=== PATIENT | female | born 1975 | race Caucasian/White ===

== ENCOUNTER 2016-08-07 10:04 | Inpatient (IN) | payer BC ==
[2016-08-07] MEDS ORDERED: MORPHINE SULFATE 4 MG/ML SYRINGE IVP STA (10:36)
[2016-08-07] MEDS ORDERED: ONDANSETRON 4 MG/2 ML VIAL IVP STA (10:36)
[2016-08-07 11:06] LABS: Basophils % (A) 0 %; CH 31.3; CHCM 33.6; Eosinophils # (A) 0.2 k/uL (0-0.7); Eosinophils % (A) 1 %; HCT 38.4 % (34.0-46.0); HDW 2.28; HGB 12.6 gm/dL (11.4-16.0); Luc # (Auto) 0.19; Luc % (Auto) 2; Lymphocytes # (A) 2.1 k/uL (1.0-4.8); Lymphocytes % (A) 16 %; MCH 30.7 pg (25.0-35.0); MCHC 32.9 g/dL (31.0-37.0); MCV 93.5 fL (80.0-100.0); Mean Platelet Volume 6.3; Monocytes # (A) 0.6 k/uL (0-1.0); Monocytes % (A) 5 %; Neutrophils % (A) 76 %; RDW 13.6 % (11.5-15.5); WBC 13.1 k/uL (3.8-10.6)
[2016-08-07 11:18] LABS: Anion Gap 9 mmol/L; Blood Urea Nitrogen 13 mg/dL (7-17); Calcium 8.7 mg/dL (8.4-10.2); Carbon Dioxide 25 mmol/L (22-30); Chloride 105 mmol/L (98-107); Glucose 113 mg/dL (74-99); Non-African American GFR(MDRD) >60 (>60 ml/min/1.73 sqM); Potassium 3.7 mmol/L (3.5-5.1); Sodium 139 mmol/L (137-145)
--- NOTE | 2016-08-07 13:01 | ED ---
Skin/Abscess/FB HPI - General Source: patient, RN notes reviewed Mode of arrival: ambulatory Limitations: no limitations <Nelson Sykes - Last Filed: 08/07/16 13:23> <Yury Vogel - Last Filed: 08/07/16 13:32> - General Chief complaint: Skin/Abscess/Foreign Body Stated complaint: abcess under arm Time Seen by Provider: 08/07/16 10:19 - History of Present Illness Initial comments: 40-year-old female presents emergency Department chief complaint of abscess to her left side of her chest, left axilla region. Patient states started a few days ago. She states is getting very large and very painful. Patient states she felt that she said fever, chills at home. Patient states she's had multiple of these ever since starting on methotrexate and Humira. She states that she was started on this for rheumatoid arthritis. Patient states that she' s had been on antibiotics in the past at least lanced open but states this is much different and worse. Patient denies any shortness of breath, headache or dizziness. (Nelson Sykes) - Related Data Home Medications Medication Instructions Recorded Confirmed Levothyroxine Sodium [Synthroid] 25 mcg PO DAILY 05/23/14 08/07/16 clonazePAM [KlonoPIN] 0.5 mg PO BID 05/23/14 08/07/16 Cyclobenzaprine [Flexeril] 10 mg PO DAILY PRN 02/09/16 08/07/16 Sertraline [Zoloft] 100 mg PO DAILY 02/09/16 08/07/16 Adalimumab [Humira] 10 mg SQ Q14D 08/07/16 08/07/16 Ergocalciferol [Vitamin D2] 50,000 unit PO ROONEY 08/07/16 08/07/16 Folic Acid 1 mg PO DAILY 08/07/16 08/07/16 Gabapentin [Neurontin] 300 mg PO BID 08/07/16 08/07/16 HYDROcodone/APAP 7.5-325MG [[place] 1 tab PO BID 08/07/16 08/07/16 7.5-325] Methotrexate Sodium [Methotrexate] 25 mg PO ROONEY 08/07/16 08/07/16 Naproxen [Naprosyn] 500 mg PO BID PRN 08/07/16 08/07/16 predniSONE See Taper PO DAILY 08/07/16 08/07/16 Allergies Allergy/AdvReac Type Severity Reaction Status Date / Time No Known Allergies Allergy Verified 08/07/16 10:45 Review of Systems ROS Other: All systems not noted in ROS Statement are negative. <Nelson Sykes - Last Filed: 08/07/16 13:23> ROS Other: All systems not noted in ROS Statement are negative. <Yury Vogel - Last Filed: 08/07/16 13:32> ROS Statement: Those systems with pertinent positive or pertinent negative responses have been documented in the HPI. Past Medical History Past Medical History: Thyroid Disorder Additional Past Medical History / Comment(s): anxiety History of Any Multi-Drug Resistant Organisms: None Reported Past Surgical History: Back Surgery, Section, Orthopedic Surgery, Tubal Ligation, Uterine Ablation Additional Past Surgical History / Comment(s): [facility], carpal tunnel. C-SEC X 2 Past Anesthesia/Blood Transfusion Reactions: No Reported Reaction Past Psychological History: Anxiety, Depression Smoking Status: Former smoker Past Alcohol Use History: None Reported Additional Past Alcohol Use History / Comment(s): QUIT SMOKING NOV 2015- SMOKED 1/2 PP WEEK FOR 1 YEAR Past Drug Use History: None Reported - Past Family History Mother Family Medical History: No Reported History <Nelson Sykes - Last Filed: 08/07/16 13:23> General Exam Limitations: no limitations General appearance: alert, in no apparent distress Respiratory exam: Present: normal lung sounds bilaterally. Absent: respiratory distress, wheezes, rales, rhonchi, stridor Cardiovascular Exam: Present: regular rate, normal rhythm, normal heart sounds. Absent: systolic murmur, diastolic murmur, rubs, gallop, clicks Skin exam: Present: warm, other (Left chest wall, axilla region there is a 1 cm papule region with extensive erythema extending towards her back and breast region there is moderately tender with palpation moderate warmth) <Nelson Sykes - Last Filed: 08/07/16 13:23> Procedures - Incision & Drainage Indication: Abscess Site: chest Size (cm): 1 Anesthetic Used: lidocaine 1%, without epi Amount (mLs): 3 I&D Cleaning Method: Betadine Needle Aspiration Performed?: Yes I&D Drainage Obtained: Pus, Blood Culture Obtained?: Yes Patient Tolerated Procedure: well, no complications <Nelson Sykes - Last Filed: 08/07/16 13:23> Medical Decision Making - Lab Data Result diagrams: 08/07/16 10:50 08/07/16 10:50 <Nelson Sykes - Last Filed: 08/07/16 13:23> - Lab Data Result diagrams: 08/07/16 10:50 08/07/16 10:50 <Yury Vogel - Last Filed: 08/07/16 13:32> - Medical Decision Making Patient reevaluated by myself, Dr. Vogel. Patient has approximately 12 x 14 area of cellulitis left chest wall with some underlying fluctuance. Ultrasound concerned for abscess. Secondary to patient being on Humira and methotrexate she will be admitted for IV antibiotics. Patient does meet sepsis criteria. Case was discussed with Dr. cope, who will admit for Dr. Bonds. Consult for Dr. kennedy with infectious disease (Yury Vogel) - Lab Data Lab Results 08/07/16 08/07/16 Range/Units 10:50 10:50 WBC 13.1 H (3.8-10.6) k/uL RBC 4.10 (3.80-5.40) m/uL Hgb 12.6 (11.4-16.0) gm/dL Hct 38.4 (34.0-46.0) % MCV 93.5 (80.0-100.0) fL MCH 30.7 (25.0-35.0) pg MCHC 32.9 (31.0-37.0) g/dL RDW 13.6 (11.5-15.5) % Plt Count 320 (150-450) k/uL Neutrophils % 76 % Lymphocytes % 16 % Monocytes % 5 % Eosinophils % 1 % Basophils % 0 % Neutrophils # 10.0 H (1.3-7.7) k/uL Lymphocytes # 2.1 (1.0-4.8) k/uL Monocytes # 0.6 (0-1.0) k/uL Eosinophils # 0.2 (0-0.7) k/uL Basophils # 0.0 (0-0.2) k/uL Sodium 139 (137-145) mmol/L Potassium 3.7 (3.5-5.1) mmol/L Chloride 105 (98-107) mmol/L Carbon Dioxide 25 (22-30) mmol/L Anion Gap 9 mmol/L BUN 13 (7-17) mg/dL Creatinine 0.70 (0.52-1.04) mg/dL Est GFR (MDRD) Af Amer >60 (>60 ml/min/1.73 sqM) Est GFR (MDRD) Non-Af >60 (>60 ml/min/1.73 sqM) Glucose 113 H (74-99) mg/dL Calcium 8.7 (8.4-10.2) mg/dL Disposition <Nelson Sykes - Last Filed: 08/07/16 13:23> <Yury Vogel - Last Filed: 08/07/16 13:32> Clinical Impression: Chest wall abscess, Cellulitis of chest wall Disposition: ADMITTED IP TO THIS HOSP Referrals: Judson Bonds DO [Primary Care Provider] - 1-2 days
[2016-08-07] MEDS ORDERED: AMPICILLIN-SULBACTAM 3 GM in SODIUM CHLORIDE 0.9% 100 ML IVPB STA (13:13)
[2016-08-07] MEDS ORDERED: IV VANCOMYCIN PER PHARMACY 1 EACH MISC MISCELLANE PRN (13:13)
[2016-08-07] MEDS ORDERED: NALOXONE 0.4 MG/ML 1 ML VIAL IV PRN (13:25)
[2016-08-07] MEDS ORDERED: ACETAMINOPHEN TAB 325 MG TAB PO PRN (13:25)
[2016-08-07] MEDS ORDERED: ONDANSETRON 4 MG/2 ML VIAL IVP PRN (13:25)
[2016-08-07] MEDS ORDERED: CYCLOBENZAPRINE 10 MG TAB PO PRN (13:27)
--- NOTE | 2016-08-07 13:28 | US ---
EXAMINATION TYPE: US mass soft tissue chest/back DATE OF EXAM: 08/07/2016 11:17 AM COMPARISON: NONE CLINICAL HISTORY: left chest wall abscess. left lateral palpable abscess. Red and hard at touch. Pa inful. Patient states having 13 of these before in axilla, but this is different location. Black do t seen in center of area. Scanning performed at the site of patient's symptomatology, possible abnormality. Grayscale, color Do ppler imaging performed. Area of palpable abscess scanned. Nonvascular complex lesion seen = 1.1 x 2.7 x 1.0 cm. Superficial canal seen. Inflammation seen. Area shows lobular borders, mixed echogenicity. IMPRESSION: Findings suggest phlegmon or abscess.
[2016-08-07] MEDS ORDERED: VANCOMYCIN 1,750 MG in SODIUM CHLORIDE 0.9% 250 ML IVPB ONE (14:00)
[2016-08-07] MEDS ORDERED: VANCOMYCIN 1,750 MG in SODIUM CHLORIDE 0.9% 500 ML IVPB ONE (14:00)
[2016-08-07] MEDS: MORPHINE SULFATE 4 MG/ML SYRINGE IV PRN ×3 (15:20→23:14)
[2016-08-07] MEDS: IBUPROFEN 400 MG TAB PO PRN ×2 (15:21→23:15)
[2016-08-07] MEDS: HYDROcodone/APAP 7.5-325MG 1 EACH TAB PO SCH (20:18)
[2016-08-07] MEDS: GABAPENTIN 300 MG CAP PO SCH (20:18)
[2016-08-07] MEDS: clonazePAM 0.5 MG TAB PO SCH (20:18)
--- NOTE | 2016-08-07 20:55 | P.PN ---
Progress Note - Text Patient seen and evaluated. She has history of previous multiple abscesses along the axilla including face following her recent diagnosis of rheumatoid arthritis. She reported 4 day history of increasing pain and warmth as well as fevers of the left chest wall. Needle aspiration was performed per ER. Ultrasound was obtained. Infectious disease is following. Given size of abscess and cellulitis of 25 x 15 cm, she may have deep subcutaneous abscess which would need drainage. Will schedule for surgical intervention. Benefits and risks were described to the patient. She agreed to proceed with surgery.
[2016-08-07] MEDS: AMPICILLIN-SULBACTAM 3 GM in SODIUM CHLORIDE 0.9% 100 ML IVPB SCH (23:07)
[2016-08-08] MEDS: VANCOMYCIN 1,750 MG in SODIUM CHLORIDE 0.9% 250 ML IVPB SCH ×2 (00:01→15:35)
[2016-08-08] MEDS: LEVOTHYROXINE 25 MCG TAB PO SCH (05:48)
[2016-08-08] MEDS: HYDROcodone/APAP 7.5-325MG 1 EACH TAB PO SCH ×2 (07:36→21:12)
[2016-08-08] MEDS: clonazePAM 0.5 MG TAB PO SCH ×2 (07:37→21:12)
[2016-08-08] MEDS: AMPICILLIN-SULBACTAM 3 GM in SODIUM CHLORIDE 0.9% 100 ML IVPB SCH (07:37)
[2016-08-08] MEDS: GABAPENTIN 300 MG CAP PO SCH ×2 (07:37→21:12)
[2016-08-08] MEDS: SERTRALINE 100 MG TAB PO SCH (07:37)
--- NOTE | 2016-08-08 07:49 | CONS ---
DATE OF CONSULTATION: DATE OF SERVICE: 08/07/2016 REASON FOR CONSULTATION: Left chest wall abscess. HISTORY OF PRESENT ILLNESS: The patient is a 40-year-old female with recent diagnosis of rheumatoid arthritis and history of recurrent skin and soft tissue infection, unfortunately none of them was drained or cultured to determine the infecting organism. The patient is presenting to the ER with left-sided chest wall and axillary area swelling and redness that had been going on for the last 4 to 5 days. The patient did not recall any history of trauma to the area. The area became swollen and red and painful. Pain described to be throbbing 6 to 7 out of 10, and no radiation. The kourtney becomes more swollen and red as well. Patient complaining of some chills, but no high-grade fever. Subsequently, the patient has been evaluated by the ER physician. The patient did have a soft tissue ultrasound done, which did show a 1.1 x 2.7 x1 cm possible abscess. The patient has been admitted to the floor started on vancomycin in addition to the Unasyn. I was asked to see the patient for further recommendation regarding antibiotic therapy. REVIEW OF SYSTEMS: CONSTITUTIONAL: Positive for weakness and a fever. EYES: No complaint. ENT: No complaint. RESPIRATORY: No complaint. CARDIOVASCULAR: No complaint. GENITOURINARY: No complaint. GASTROINTESTINAL: No complaint. MUSCULOSKELETAL: No complaint. INTEGUMENTARY: As per HPI. PSYCHOLOGIC: No complaint. ENDOCRINE: No complaint. NEUROLOGICAL: No complaint. PAST MEDICAL HISTORY: Significant for a recent diagnosis of rheumatoid arthritis, hypothyroidism, soft tissue infection, anxiety and depression. PAST SURGICAL HISTORY: Back surgery, tubal ligation, uterine ablation, bilateral carpal tunnel, x2. SOCIAL HISTORY: Remote history of smoking. No drinking or drug use. FAMILY HISTORY: No pertinent findings were noticed. ALLERGIES: No known drug allergies. MEDICATIONS: Currently include the patient is on Tylenol, [place], Unasyn, Klonopin, Flexeril, folic acid, Neurontin, Motrin, morphine sulfate, Narcan, Zofran, vancomycin pharmacy to dose. On examination, blood pressure is 127/79 with a pulse of 107, temperature of 101.6. She is 99% on room air. General description is an elderly female lying in bed in no distress. HEENT EXAMINATION: No pallor or scleral icterus. Oral mucous membranes dry. NECK: Trachea central. There is no thyromegaly. LUNGS: Unlabored breathing. Clear to auscultation anteriorly. HEART: S1, S2. Regular rate and rhythm. ABDOMEN: Soft, no tenderness. EXTREMITIES: No edema of feet. EXAMINATION OF LEFT CHEST WALL: There is an area of swelling and redness, some fluctuation, no drainage, NEUROLOGIC: The patient is awake, alert, oriented x2. Mood affect normal. LABS: Ultrasound suggestive of an abscess formation. Hemoglobin is 12.6, white count 13.1. BUN of 13, creatinine 0.70. DIAGNOSTIC IMPRESSION: Patient with sepsis in a patient who did have fever of 101.6 with tachycardia, elevated white count meeting criteria for systemic inflammatory response syndrome. Source is left chest wall cellulitis and abscess likely from Gram-positive skin valente with a question of possible Staph aureus in view of recurrent skin and soft tissue infection. PLAN: 1. Await surgical drainage of this area, which will be sent for culture. 2. Vancomycin, pharmacy to dose, with a target trough of 15 along with Unasyn. 3. Will follow up on the clinical condition and cultures to further adjust the medication if needed. Thank you for this consultation. Will follow this patient along with you. SUSHIL
[2016-08-08] MEDS: ENOXAPARIN 40 MG/0.4 ML SYRINGE SQ SCH (11:08)
[2016-08-08] MEDS ORDERED: IV FLUID CONTINUATION 1,000 ML IV ONE (12:16)
--- NOTE | 2016-08-08 12:29 | HP ---
DATE OF ADMISSION: 08/07/2016 PRESENTING COMPLAINT: Abscess in the left chest wall. HISTORY OF PRESENTING COMPLAINT: This is a very pleasant 40-year-old patient of Dr. Bonds. Chronic stable medical conditions include rheumatoid arthritis, hypothyroid, anxiety. The patient does follow with Dr. Vail for rheumatoid arthritis, was started on Humira and has been on methotrexate. This patient has been having recurrent infections. They become golf size balls, described as hidradenitis. Patient stopped going for ( ) antibiotics as she felt they were not really helping. She just takes a warm cloth until it bursts. The patient now presents with another bout of abscess below the left axilla, started as a small pin and continued to grow. The patient developed a fever, nausea, decreased appetite, rundown, a sepsis-like picture and admitted for the same. Patient is put on IV vancomycin and Unasyn in the ER and Dr. Smart was consulted. REVIEW OF SYSTEMS: CONSTITUTIONAL: Febrile, weak, tired. HEENT: None. RESPIRATORY: None. CARDIOVASCULAR: None. GASTROINTESTINAL: None GENITOURINARY: None. MUSCULOSKELETAL: Rheumatoid pain in the hands, elbows, knees. DERMATOLOGICAL: As above. LYMPHATICS: None. PSYCHIATRY: Anxiety. NEUROLOGICAL: None. PAST MEDICAL HISTORY: Rheumatoid arthritis, hypothyroid, recurrent hidradenitis. PAST SURGICAL HISTORY: Back surgery, , orthopedic surgery, uterine ablation, cervical effusion. Past psych history of anxiety. SOCIAL HISTORY: Lives with 2 children. Has not been working since November of last year. Does not smoke. Alcohol occasionally. FAMILY HISTORY: Hypertension, osteoarthritis, Abrams's palsy. HOME MEDICATIONS: 1. Humira 10 mg subcu every 14 days. 2. Prednisone taper. 3. Folic acid 1 mg daily. 4. Methotrexate 25 mg on Sundays. 5. Klonopin 0.5 mg p.o. b.i.d. 6. Zoloft 100 mg p.o. daily. 7. Naproxen 500 mg p.o. b.i.d. p.r.n. 8. Synthroid 25 mcg p.o. daily. 9. [place] 7.5 b.i.d. 10. Neurontin 300 mg p.o. b.i.d. 11. Vitamin D2, 50,000 units p.o. on Sundays. 12. Flexeril 10 mg p.o. daily p.r.n. ALLERGIES: None. ON EXAMINATION: VITAL SIGNS: T-max to 101.6, pulse up to 107, respirations 16, blood pressure 127/79, pulse ox 99% on room air. GENERAL APPEARANCE: Well built, BMI of 38.3, lying in bed, not in distress. EYES: Pupils equal. Conjunctivae normal. HENT: Oral cavity normal. NECK: Short, thick. JVD unable to assess. Mass not palpable. RESPIRATORY: Effort normal. LUNGS: Fair air entry. CARDIOVASCULAR: First and second sounds normal. No edema. ABDOMEN: Soft, nontender. Liver and spleen not palpable. LYMPHATIC: No lymph nodes palpable in neck or axillae. PSYCHIATRY: Alert and oriented x3. Mood and affect normal. NEUROLOGICAL: Pupils equal. Cranial nerves grossly intact. MUSCULOSKELETAL: Mildly swollen joints in the hands. DERMATOLOGICAL: There is an abscess below the left axillae in the mid axillary line about 7 cm x 4 cm, very tender, has got a pinpoint area, a little bit fluctuant with a large surrounding area of cellulitis. INVESTIGATIONS: White count 13.1, hemoglobin 12.6. Potassium 3.7. ASSESSMENT: 1. Acute left chest wall abscess subcutaneous with severe surrounding cellulitis in a patient who is immunosuppressed with methotrexate and Humira, recurrent, presenting as sepsis on presentation. 2. Bilateral multiple joints, symmetrical rheumatoid arthritis in multiple joints, on immunosuppressive therapy. 3. Obesity; body mass index of 38.3. 4. Anxiety, not otherwise specified. 5. Depression, not otherwise specified 6. Hypothyroidism. PLAN: Patient started on IV Unasyn and vancomycin. Dr. Smart was consulted for I&D. Initial culture is already growing staph aureus. We will consult Dr. Vail. The patient's Humira and methotrexate have to be held off at least until the infection clears up. Care was discussed with the patient. Patient should also see a dietitian for weight loss measures.
[2016-08-08] MEDS ORDERED: PROMETHAZINE INJ 6.25 MG in SODIUM CHLORIDE 0.9% 50 ML IVPB STA (12:46)
--- NOTE | 2016-08-08 12:48 | P.HPADDEND ---
H&P Addendum H&P Addendum Date: 08/08/16 Patient has severe pain of the left upper chest wall secondary to an abscess. We'll proceed with drainage and washout. Benefits and risks are discussed to her and the patient's family.
[2016-08-08] MEDS ORDERED: HYDROCORTISONE SUCCINATE 100 MG/2 ML VIAL IV ONE (12:49)
[2016-08-08] MEDS ORDERED: PROMETHAZINE INJ 25 MG/ML 1 ML VIAL IVPB ONE (13:04)
[2016-08-08] MEDS ORDERED: SUCCINYLCHOLINE CHLORIDE 100 MG/5 ML SYR IV ONE (13:06)
[2016-08-08] MEDS ORDERED: fentaNYL (PF) 50 MCG/ML 2 ML AMP ONE (13:06)
[2016-08-08] MEDS ORDERED: MIDAZOLAM 2 MG/2 ML VIAL ONE (13:06)
[2016-08-08] MEDS ORDERED: PROPOFOL 10 MG/ML 20 ML VIAL IV ONE (13:06)
[2016-08-08] MEDS ORDERED: LIDOCAINE 1% INJ 10MG/ML (20 ML MDV) ONE (13:06)
[2016-08-08] MEDS ORDERED: BUPIVACAIN-EPI 0.25%-1:200,000 30 ML VIAL SQ ONE (13:25)
--- NOTE | 2016-08-08 13:53 | P.PCN ---
Date of Procedure: 08/08/16 Preoperative Diagnosis: Cellulitis left chest wall with abscess Postoperative Diagnosis: Same, 15 x 10 cm Procedure(s) Performed: Incision and drainage of left chest wall 15 x 10 cm, washout of wound 3 L normal saline, packing [employer] Anesthesia: GETA, local Surgeon: Annetta Smart Estimated Blood Loss (ml): 30 Pathology: other (Aerobic and anaerobic culture) Condition: stable Disposition: floor Operative Findings: 5 x 3 cm pocket left chest wall incised and drained and packed
[2016-08-08] MEDS ORDERED: LACTATED RINGERS 1,000 ML IV ONE (14:46)
[2016-08-08] MEDS: FOLIC ACID 1 MG TAB PO SCH (15:22)
--- NOTE | 2016-08-08 21:50 | PN ---
DATE OF SERVICE: 08/08/2016 REASON FOR FOLLOWUP: Left chest wall abscess. INTERVAL HISTORY: The patient did spike a fever last night; however, the patient has been afebrile since then. The patient is scheduled for an I&D of this area later this afternoon. The patient's pain is slightly improved. The patient denies having any chest pain or shortness of breath or cough. No abdominal pain or any diarrhea. On examination, blood pressure is 107/56 with pulse of 66, temperature 97.3. She is 98% on 2 L nasal cannula. General description is a middle-aged female up in the bed in no distress. RESPIRATORY SYSTEM: Unlabored breathing. Clear to auscultation anteriorly. HEART: S1, S2. Regular rate and rhythm. LEFT CHEST WALL: Overall area swelling and redness have slightly improved. No drainage. LABS: No new labs have been obtained today. Cultures from yesterday presumptive MRSA. DIAGNOSTIC IMPRESSION AND PLAN: Patient with a left chest wall abscess, likely methicillin-resistant Staphylococcus aureus. Awaiting surgical debridement. The patient will continue on vancomycin, Pharmacy to dose. Further adjustment of antibiotic based on the culture report as well as the clinical response. Continue supportive care.
[2016-08-08] MEDS ORDERED: VANCOMYCIN TROUGH DUE 1 EACH MISC MISCELLANE ONE (23:00)
[2016-08-09] MEDS: VANCOMYCIN 1,750 MG in SODIUM CHLORIDE 0.9% 250 ML IVPB SCH ×4 (01:12→22:54)
[2016-08-09] MEDS: LEVOTHYROXINE 25 MCG TAB PO SCH (05:41)
[2016-08-09] MEDS: clonazePAM 0.5 MG TAB PO SCH ×2 (08:30→20:50)
[2016-08-09] MEDS: ENOXAPARIN 40 MG/0.4 ML SYRINGE SQ SCH (08:31)
[2016-08-09] MEDS: SERTRALINE 100 MG TAB PO SCH (08:31)
[2016-08-09] MEDS: HYDROcodone/APAP 7.5-325MG 1 EACH TAB PO SCH ×2 (08:31→20:50)
[2016-08-09] MEDS: FOLIC ACID 1 MG TAB PO SCH (08:31)
[2016-08-09] MEDS: GABAPENTIN 300 MG CAP PO SCH ×2 (08:31→20:50)
[2016-08-09 08:34] LABS: Basophils % (A) 0 %; CH 31.1; CHCM 33.1; Eosinophils # (A) 0.2 k/uL (0-0.7); Eosinophils % (A) 2 %; HCT 34.7 % (34.0-46.0); HDW 2.38; HGB 11.5 gm/dL (11.4-16.0); Luc # (Auto) 0.22; Luc % (Auto) 2; Lymphocytes # (A) 2.2 k/uL (1.0-4.8); Lymphocytes % (A) 24 %; MCH 31.3 pg (25.0-35.0); MCHC 33.1 g/dL (31.0-37.0); MCV 94.3 fL (80.0-100.0); Mean Platelet Volume 6.6; Monocytes # (A) 0.4 k/uL (0-1.0); Monocytes % (A) 4 %; Neutrophils # (A) 6.4 k/uL (1.3-7.7); Neutrophils % (A) 68 %; RBC 3.68 m/uL (3.80-5.40); RDW 13.4 % (11.5-15.5); WBC 9.4 k/uL (3.8-10.6); WBC (Perox) 9.93
[2016-08-09 09:04] LABS: Anion Gap 8 mmol/L; Blood Urea Nitrogen 6 mg/dL (7-17); Carbon Dioxide 29 mmol/L (22-30); Chloride 103 mmol/L (98-107); Glucose 99 mg/dL (74-99); Non-African American GFR(MDRD) >60 (>60 ml/min/1.73 sqM); Potassium 3.9 mmol/L (3.5-5.1); Sodium 140 mmol/L (137-145)
--- NOTE | 2016-08-09 15:05 | P.PN ---
Subjective Did note that the wound culture from the left axillary chest wall preliminary presumptive MRSA infectious disease participating in the plan of care. Bloo cultures showing no growth 48 hours. Patient has remained afebrile for the last 24 hours with a white count down to 9.4 on admission was 13.1 40-year-old female being seen on rounds. Family at bedside. Early on IV vancomycin. This is a follow-up visit on a female who presented with left chest wall pain found to have an abscess underwent an incision and drainage of this area on the This is a follow-up visit on a 40-year-old female who presented with left anterior chest wall pain found to have cellulitis with an abscess. Patient underwent incision and drainage of the left chest wall measuring 15 x 10 cm with a washout of 3 L of normal saline with packing of an Aquacel ag rope Objective - Vital Signs Vital signs: Vital Signs Temp 97.6 F 08/09/16 07:00 Pulse 87 08/09/16 07:00 Resp 16 08/09/16 07:00 BP 108/59 08/09/16 07:00 Pulse Ox 96 08/09/16 07:00 Intake & Output 08/08/16 08/09/16 08/09/16 18:59 06:59 18:59 Intake Total 800 800 360 Output Total 30 Balance 770 800 360 Intake: IV 800 800 .9 800 Oral 0 360 Output: Estimated Blood Loss 30 Other: Voiding Method Toilet Toilet # Voids 1 1 - Exam GENERAL APPEARANCE: Very pleasant 40-year-old female patient is alert, oriented , in no acute distress. Sitting up in bed VITAL SIGNS: Reviewed HEENT: Head is normocephalic and atraumatic. Pupils are equal and reactive. The nares are patent. Oropharynx is clear without lesions. NECK: Supple without lymphadenopathy. Traches midline. Chest dressing left axillary area dry positive tenderness HEART: S1, S2. Regular rate and rhythm. Denying chest pain LUNGS: No crackles or wheezes are heard. Essentially clear adequate air movement ABDOMEN: Soft, nontender, nondistended with good bowel sounds. No peritoneal signs. No palpable organomegaly or masses. EXTREMITIES: Normal skin color and turgor. No cyanosis, rash, ulceration, clubbing or edema. Radial pedal pulses are 2/4 bilaterally. NEUROLOGICAL: No focal deficits. Strength and sensation are grossly intact. - Labs CBC & Chem 7: 08/09/16 07:49 08/09/16 07:49 Labs: Abnormal Lab Results - Last 24 Hours (Table) 08/09/16 08/09/16 Range/Units 07:49 07:49 RBC 3.68 L (3.80-5.40) m/uL BUN 6 L (7-17) mg/dL Calcium 8.0 L (8.4-10.2) mg/dL Microbiology - Last 24 Hours (Table) 08/08/16 13:36 Gram Stain - Preliminary Chest Wound Culture - Preliminary Presumptive MRSA 08/08/16 13:36 Anaerobic Culture - Preliminary Chest Assessment and Plan Plan: Impression Present on admission severe left chest wall pain left axillary suspect due to an abscess Present on admission febrile tachycardic sepsis likely due to left axillary abscess History of rheumatoid arthritis on methotrexate and humira History recurrent infections is likely hidradenitis Hypertension essential hypothyroid on supplements Plan Continue IV vancomycin per infectious diseases recommendations Dressing change per surgical service Pain control Follow-up on pending wound cultures DVT and GI problem Further recommendations pending will follow surgical course closely The above dictated assessment and findings were discussed with Dr. Tiago Hamm covering for Dr. Smart Impression and the plan of care have been dictated as directed. Mayi Mederos nurse practitioner acting as a scribe for Dr. Claire covering for Dr. Smart
--- NOTE | 2016-08-09 18:52 | P.CONS ---
History of Present Illness - Reason for Consult Consult date: 08/09/16 Rheumatology consult: Reoccurring infection in pt. with RA - Chief Complaint LEFT chest wall pain - History of Present Illness Pt. is a pleasant 40 y/o female with a past medical history significant for rheumatoid arthritis, hypothyroidism, and anxiety who presented to the ER on Sunday (08/07) for left anterior chest wall pain. Pt. states that her symptoms initially began approximately 5 days ago on Sunday (08/04) when she noticed a hard, cystic structure near her left braline. Pt. also admits to having a fever on Sunday night. Pt. does have a history of lesions consistent with hidradenitis suppurativa and she states that she usually gets "ping-pong ball" sized nodules under her armpits and that after a day or two of using heating pads, the nodules are able to drain and eventually subside. Pt.'s initial lesions began on her ears this past February, and after being started on MTX for her RA, pt. states that she started getting lesions under her armpits. Pt. states that she knew that this episode was different since in addition to a fever, pt. also experienced nausea and headaches last weekend. Pt. also added that the structure felt hard and it was not draining like it normally has in the past, and pt. also mentions that she has never had an episode of lesions outside of her axillary region. Pt. states that she wanted to go to the ER on Sunday, however she postponed this since it was Easter and her family was over. Pt. was seen in the ER on Sunday morning and she mentions that at that time the structure seemed to have grown in length and the area was red, warm, and tender. Pt. was admitted to the hospital and yesterday she underwent incision and drainage of the left chest wall. Pt.'s wound culture did reveal presumptive MRSA and infectious disease is following pt.'s case. Blood cultures have revealed no growth x 48 hours. Pt. has been afebrile for the past 24 hours and her WBC count has returned to normal. Pt. is currently on IV vancomycin and she is waiting for her first dressing change. Pt. was sitting up in bed and eating dinner at the time of today's consult. She admits to still feeling a bit tired from the surgery yesterday and she also feels some burning in the area of the I&D. Pt. is also complaining of persistent hand pain and swelling. She was last seen in our office on 07/14 and at that time her MTX was increased from 5 pills once a week to 10 pills once a week with the hopes that this may increase the chance of her insurance covering Humira, since Humira is approved for RA and hidradenitis suppurativa. Pt. was also at that time having increased hand pain and swelling so she was started on a prednisone 30 mg, 2 week taper course. She is currently taking 25 mg prednisone daily. Pt. was given a Humira injection at her 07/14 visit and she was also provided with a couple of samples at that time. Pt. had her second Humira injection on 07/26 and she is due for her next injection today. Pt. did not take her MTX this past Sunday (08/06). Review of Systems All systems: negative Constitutional: Denies chills, Denies fever Eyes: denies blurred vision, denies pain Ears, nose, mouth and throat: Denies headache, Denies sore throat Cardiovascular: Denies chest pain, Denies shortness of breath Respiratory: Denies cough Gastrointestinal: Denies abdominal pain, Denies diarrhea, Denies nausea, Denies vomiting Genitourinary: Denies dysuria, Denies hematuria Musculoskeletal: Denies myalgias Musculoskeletal: bilateral: hand pain, hand stiffness, hand swelling Integumentary: Reports wounds (LEFT chest wall), Denies pruritus, Denies rash Neurological: Reports tingling (LEFT chest wall), Denies numbness, Denies weakness Psychiatric: Denies depression Endocrine: Reports fatigue, Denies weight change Past Medical History Past Medical History: Rheumatoid Arthritis (RA), Thyroid Disorder Additional Past Medical History / Comment(s): hypothyroid, abscesses since starting meds for RA. History of Any Multi-Drug Resistant Organisms: None Reported Past Surgical History: Back Surgery, Section, Orthopedic Surgery, Tubal Ligation, Uterine Ablation Additional Past Surgical History / Comment(s): BILAT CTR, C-SEC X 2, cervical fusions. Past Anesthesia/Blood Transfusion Reactions: No Reported Reaction Past Psychological History: Anxiety Additional Psychological History / Comment(s): Pt lives with her two children, ages 8 and 12. She is independent. Smoking Status: Former smoker Past Alcohol Use History: Occasional Additional Past Alcohol Use History / Comment(s): QUIT SMOKING NOV 2015- SMOKED 1/2 PP WEEK FOR 1 YEAR Past Drug Use History: None Reported - Past Family History Mother Family Medical History: Hypertension, Osteoarthritis (OA) Additional Family Medical History / Comment(s): Ever Hui Father Family Medical History: Rheumatoid Arthritis (RA) Additional Family Medical History / Comment(s): Severe RA Medications and Allergies Home Medications Medication Instructions Recorded Confirmed Type Levothyroxine Sodium [Synthroid] 25 mcg PO DAILY 05/23/14 08/07/16 History clonazePAM [KlonoPIN] 0.5 mg PO BID 05/23/14 08/07/16 History Cyclobenzaprine [Flexeril] 10 mg PO DAILY PRN 02/09/16 08/07/16 History Sertraline [Zoloft] 100 mg PO DAILY 02/09/16 08/07/16 History Adalimumab [Humira] 10 mg SQ Q14D 08/07/16 08/07/16 History Ergocalciferol [Vitamin D2] 50,000 unit PO ROONEY 08/07/16 08/07/16 History Folic Acid 1 mg PO DAILY 08/07/16 08/07/16 History Gabapentin [Neurontin] 300 mg PO BID 08/07/16 08/07/16 History HYDROcodone/APAP 7.5-325MG [Herald 1 tab PO BID 08/07/16 08/07/16 History 7.5-325] Methotrexate Sodium [Methotrexate] 25 mg PO ROONEY 08/07/16 08/07/16 History Naproxen [Naprosyn] 500 mg PO BID PRN 08/07/16 08/07/16 History predniSONE See Taper PO DAILY 08/07/16 08/07/16 History Allergies Allergy/AdvReac Type Severity Reaction Status Date / Time No Known Allergies Allergy Verified 08/07/16 10:45 Physical Exam Vitals: Vital Signs Temp Pulse Resp BP Pulse Ox 08/09/16 15:00 97.5 F L 85 16 109/69 97 08/09/16 07:00 97.6 F 87 16 108/59 96 08/08/16 21:45 97.6 F 102 H 16 124/80 99 Intake and Output 08/09/16 08/09/16 08/09/16 06:59 14:59 22:59 Intake Total 400 720 Balance 400 720 Intake: IV 400 .9 400 Oral 720 Other: Voiding Method Toilet # Voids 1 - Constitutional General appearance: no acute distress (sitting up and eating dinner ) - EENT Eyes: EOMI - Neck Neck: no lymphadenopathy - Respiratory Respiratory: bilateral: CTA - Cardiovascular Rhythm: regular - Gastrointestinal General gastrointestinal: no organomegaly, soft, no tenderness - Neurologic Neurologic: CNII-XII intact - Musculoskeletal Mild swelling in B/L 2nd and 3rd MCP joints, much improved since pt.'s last office visit on 07/14. - Psychiatric Psychiatric: A&O x's 3, appropriate affect, intact judgment & insight dressings present on left chest wall Results CBC & Chem 7: 08/09/16 07:49 08/09/16 07:49 Labs: Abnormal Lab Results - Last 24 Hours (Table) 08/09/16 08/09/16 Range/Units 07:49 07:49 RBC 3.68 L (3.80-5.40) m/uL BUN 6 L (7-17) mg/dL Calcium 8.0 L (8.4-10.2) mg/dL Microbiology - Last 24 Hours (Table) 08/08/16 13:36 Gram Stain - Preliminary Chest Wound Culture - Preliminary Presumptive MRSA 08/08/16 13:36 Anaerobic Culture - Preliminary Chest Assessment and Plan (1) Cellulitis of chest wall Status: Acute (2) Chest wall abscess Status: Acute (3) Rheumatoid arthritis Status: Chronic Plan: Dr. Vail did speak with the patient regarding further plan of care at this time. Pt. is to continue to stay off of the MTX and Humira for now since it seems as though patient's symptoms have worsened since increasing her MTX and further immunosuppression should be avoided at this time. She may continue her prednisone taper as long as this is okay with infectious disease. Pt. will be returning in the office for labwork sometime in August with a 2 week follow up appointment. At that time, Xeljanz may be discussed as an alternative treatment for pt.'s RA. She was advised to see dermatology after she is discharged for further evaluation and treatment of suspected hidradenitis suppurativa. The pt. was seen and examined by Dr. Vail who does agree with the above dictated assessment and findings. Time with Patient: Greater than 30
--- NOTE | 2016-08-09 20:16 | PN ---
DATE OF SERVICE: 08/09/2016 REASON FOR FOLLOWUP: Left chest wall MRSA abscess. INTERVAL HISTORY: The patient is afebrile. Pain is currently controlled. The patient is status post extensive debridement of the left chest wall area. Currently the wound has been packed and Per Surgeon's instructions not to be changed until tomorrow. No nausea or vomiting. No abdominal pain or any diarrhea. On examination, blood pressure 109/69 with a pulse of 85, temperature 97.5. She is 97% on room air. General description is a middle-age female lying in bed in no distress. RESPIRATORY SYSTEM: Unlabored breathing. Clear to auscultation anteriorly. HEART: S1, S2 with regular rate and rhythm. ABDOMEN: Soft. No tenderness. CHEST WALL: Left chest wall wound is currently dressed. LABS: Hemoglobin 11.5, white count 9.4. BUN of 6, creatinine 0.67. Vancomycin trough has been low. DIAGNOSTIC IMPRESSION AND PLAN: Patient with a methicillin-resistant Staphylococcus aureus left chest wall abscess, status post debridement. Vancomycin dose needs to be adjusted up by Pharmacy, decreased the dose the around the 15th. Re-evaluate the wound tomorrow to determine discharge antibiotics. Continue supportive care.
[2016-08-09] MEDS: predniSONE 10 MG TAB PO SCH (22:54)
[2016-08-10] MEDS: LEVOTHYROXINE 25 MCG TAB PO SCH (05:39)
[2016-08-10] MEDS: FOLIC ACID 1 MG TAB PO SCH (07:57)
[2016-08-10] MEDS: predniSONE 10 MG TAB PO SCH (07:57)
[2016-08-10] MEDS: SERTRALINE 100 MG TAB PO SCH (07:57)
[2016-08-10] MEDS: clonazePAM 0.5 MG TAB PO SCH ×2 (07:57→22:01)
[2016-08-10] MEDS: GABAPENTIN 300 MG CAP PO SCH ×2 (07:57→22:01)
[2016-08-10] MEDS: ENOXAPARIN 40 MG/0.4 ML SYRINGE SQ SCH (07:58)
[2016-08-10] MEDS: VANCOMYCIN 1,750 MG in SODIUM CHLORIDE 0.9% 250 ML IVPB SCH ×2 (07:58→15:26)
--- NOTE | 2016-08-10 08:07 | PN ---
DATE OF SERVICE: 08/09/2016 PRESENTING COMPLAINT: Left chest wall abscess. INTERVAL HISTORY: This is a patient immunosuppressed presented with left chest wall abscess, status post I&D, significant amount of pus was removed. Culture is growing MRSA. Patient is on vancomycin. Overall feeling better. Tolerating a diet. Patient's friends are present with her. Review of systems done for constitutional, cardiovascular, GI, pulmonary, dermatology; relevant findings as above. Current medications are reviewed and include vancomycin. On examination, temperature 97.5, pulse 85, respiration 16, blood pressure 109/69, pulse ox 97% on room air. GENERAL APPEARANCE: Sitting up, not in distress. EYES: Pupils equal. Conjunctivae normal. NECK: JVD not raised. Mass not palpable. RESPIRATORY: Effort normal. LUNGS: Fair entry. CARDIOVASCULAR: First and second sounds normal. No edema. ABDOMEN: Soft, nontender. Liver and spleen not palpable. CHEST WALL: Dressing over the wound site. INVESTIGATIONS: White count 9.4, hemoglobin 11.5. Micro is growing MRSA. ASSESSMENT: 1. Left chest wall abscess, status post I&D in immunosuppressed patient, has been on methotrexate and Humira, presenting as sepsis growing methicillin-resistant Staphylococcus aureus. 2. Bilateral symmetrical rheumatoid arthritis in multiple joints, on immunosuppression therapy. 3. Obesity; body mass index 38.3. 4. Anxiety, not otherwise specified. 5. Depression, not otherwise specified. 6. Hypothyroidism. PLAN: Continue with current medication and treatment plan. Await further input from ID. Care was discussed with the patient. Encouraged to ambulate.
[2016-08-10] MEDS: HYDROcodone/APAP 7.5-325MG 1 EACH TAB PO SCH ×2 (11:50→22:01)
[2016-08-10] MEDS ORDERED: VANCOMYCIN TROUGH DUE 1 EACH MISC MISCELLANE ONE (15:00)
--- NOTE | 2016-08-10 15:28 | P.PN ---
Subjective 40-year-old female patient being seen on rounds this morning. Dr. Tiago Hamm surgeon did remove the dressing from the left chest wall. There is decrease redness and tenderness compared to prior assessment. Patient is postop incision and drainage of the left chest wall with a washout 3 L of normal saline done on August 08. Patient is being followed by infectious disease Dr. Perera in being treated for left chest wall MRSA abscess Objective - Vital Signs Vital signs: Vital Signs Temp 97.9 F 08/10/16 07:00 Pulse 79 08/10/16 08:00 Resp 16 08/10/16 08:00 BP 139/87 08/10/16 07:00 Pulse Ox 96 08/10/16 07:00 Intake & Output 08/09/16 08/10/16 08/10/16 18:59 06:59 18:59 Intake Total 720 940 360 Balance 720 940 360 Weight 104.326 kg 104.326 kg Intake: IV 400 .9 400 Oral 720 540 360 Other: Voiding Method Toilet Toilet Toilet # Voids 1 1 - Exam GENERAL APPEARANCE: Very pleasant 40-year-old female patient is alert, oriented , in no acute distress. Sitting up in bed pain medication effective for pain control VITAL SIGNS: Reviewed HEENT: Head is normocephalic and atraumatic. Pupils are equal and reactive. The nares are patent. Oropharynx is clear without lesions. NECK: Supple without lymphadenopathy. Traches midline. Chest dressing left axillary removed scant amount of drainage noted. There is a significant improvement in the tenderness with decrease edema and decreased redness at the site HEART: S1, S2. Regular rate and rhythm. Denying chest pain LUNGS: No crackles or wheezes are heard. Essentially clear adequate air movement ABDOMEN: Soft, nontender, nondistended with good bowel sounds. No peritoneal signs. No palpable organomegaly or masses. EXTREMITIES: Normal skin color and turgor. No cyanosis, rash, ulceration, clubbing or edema. Radial pedal pulses are 2/4 bilaterally. NEUROLOGICAL: No focal deficits. Strength and sensation are grossly intact. - Labs CBC & Chem 7: 08/09/16 07:49 08/09/16 07:49 Labs: Microbiology - Last 24 Hours (Table) 08/08/16 13:36 Gram Stain - Final Chest Wound Culture - Final Methicillin resist S. aureus Assessment and Plan Plan: Impression Present on admission severe left chest wall pain left axillary suspect due to an abscess Present on admission febrile tachycardic sepsis likely due to left axillary abscess History of rheumatoid arthritis on methotrexate and humira History recurrent infections is likely hidradenitis Hypertension essential hypothyroid on supplements Plan Continue IV vancomycin per infectious diseases recommendations Wound care per infectious disease [facility] rope Pain control Follow-up on pending wound cultures DVT and GI prophylaxis Further recommendations pending will follow surgical course closely The above dictated assessment and findings were discussed with Dr. Tiago Hamm covering for Dr. Smart Impression and the plan of care have been dictated as directed. Mayi Mederos nurse practitioner acting as a scribe for Dr. Claire covering for Dr. Smart
--- NOTE | 2016-08-10 18:12 | PN ---
DATE OF SERVICE: 08/10/2016 REASON FOR FOLLOWUP: Left chest wall abscess. INTERVAL HISTORY: The patient is afebrile. She is currently breathing comfortably. Pain to the left chest wall is currently controlled. Denies having any abdominal pain. No nausea, vomiting or any diarrhea. On examination, blood pressure is 139/87 with a pulse of 81, temperature 97.9. She is 96% on room air. General description is a middle-aged female up in the bed in no distress. RESPIRATORY SYSTEM: Unlabored breathing. Clear to auscultation anteriorly. HEART: S1, S2. Regular rate and rhythm. ABDOMEN: Soft. No tenderness. LEFT CHEST WALL: Overall swelling and redness have slightly improved. Minimal drainage. LABS: Hemoglobin is 11.5, white count 9.4 with a BUN of 6, creatinine 0.67. Wound culture with MRSA. Blood culture has been negative. DIAGNOSTIC IMPRESSION AND PLAN: Patient with MRSA in left chest wall abscess, status post drainage. Currently on vancomycin. Plan to finish therapy with Bactrim DS one twice a day for about 2 weeks along with Aquacel Silver packing of the wound and followup in the office in about a week. Continue supportive care.
[2016-08-11] MEDS: LEVOTHYROXINE 25 MCG TAB PO SCH (05:46)
[2016-08-11 08:29] VITALS: BP 127/82; PULSE 84; RESP 18; TEMP 97.8
[2016-08-11] MEDS: VANCOMYCIN 1,750 MG in SODIUM CHLORIDE 0.9% 250 ML IVPB SCH ×3 (09:04)
[2016-08-11] MEDS: SERTRALINE 100 MG TAB PO SCH (09:07)
[2016-08-11] MEDS: predniSONE 10 MG TAB PO SCH (09:08)
[2016-08-11] MEDS: GABAPENTIN 300 MG CAP PO SCH (09:08)
[2016-08-11] MEDS: ENOXAPARIN 40 MG/0.4 ML SYRINGE SQ SCH (09:09)
--- NOTE | 2016-08-11 09:09 | PN ---
DATE OF SERVICE: 08/10/2016 PRESENTING COMPLAINT: Left chest wall abscess. INTERVAL HISTORY: This is a patient immunosuppressed, ( ) present with abscess left chest wall that was actually I&D. Cultures were growing MRSA, getting better. Up and about, tolerating a diet. Review of systems done for constitutional, cardiovascular, GI, pulmonary; relevant findings as above. Current medications include IV vancomycin. On examination, temperature 98.7, pulse 75, respiratory rate 20, blood pressure 130/81, pulse ox 95% on room air. GENERAL APPEARANCE: Sitting up, comfortable. EYES: Pupils equal. Conjunctivae normal. NECK: JVD not raised. Mass not palpable. RESPIRATORY: Effort normal. Lungs are clear. CARDIOVASCULAR: First and second sounds normal. No edema. ABDOMEN: Soft, nontender. Liver and spleen not palpable. Left chest wall ( ) decreased ( ). INVESTIGATIONS: No blood work from today. Vancomycin 30.2. ASSESSMENT: 1. Left chest wall abscess, status post incision and drainage in an immunosuppressed patient on methotrexate and Humira presenting with sepsis growing Methicillin-resistant Staph aureus on presentation. 2. Bilateral symmetrical rheumatoid arthritis of multiple joints on immunosuppressed therapy as an outpatient, now discontinued. 3. Obesity; body mass index of 38.3. 4. Anxiety, not otherwise specified. 5. Depression not otherwise specified. 6. Hypothyroidism. PLAN: Continue current medication and treatment plan. Hopefully, the patient can be discharged home on Bactrim in the next 24 hours.
[2016-08-11] MEDS: HYDROcodone/APAP 7.5-325MG 1 EACH TAB PO SCH (09:10)
[2016-08-11] MEDS: FOLIC ACID 1 MG TAB PO SCH (09:10)
[2016-08-11] MEDS: clonazePAM 0.5 MG TAB PO SCH (09:16)
--- NOTE | 2016-08-11 11:11 | P.PN ---
Subjective 40-year-old female being seen by the surgical attending this morning. The surgical dressing removed by Dr. Claire. There is a significant improvement in the redness less tender dressing was dry from the last chest site. Infectious disease participating in the plan of care. Patients being treated for left chest wall MRSA abscess. Patient is status post incision and drainage of the left chest wall which was done on August 08 with a 3 L washout. Objective - Vital Signs Vital signs: Vital Signs Temp 97.8 F 08/11/16 07:00 Pulse 84 08/11/16 07:00 Resp 18 08/11/16 07:00 BP 127/82 08/11/16 07:00 Pulse Ox 97 08/11/16 07:00 Intake & Output 08/10/16 08/11/16 08/11/16 18:59 06:59 18:59 Intake Total 1560 1130 Balance 1560 1130 Intake: Intake, IV Titration 650 550 Amount Lactated Ringers 1,000 ml 400 550 As IV .[facility] Rx#: [id number] Vancomycin 1,750 mg In 250 Sodium Chloride 0.9% 250 ml @ 125 mls/hr IVPB Q8HR [facility] Rx#:[id number] Oral 910 580 Other: Voiding Method Toilet Toilet # Voids 3 2 # Bowel Movements 0 0 - Exam GENERAL APPEARANCE: Very pleasant 40-year-old female patient is alert, oriented , in no acute distress. Has been up ambulating in the hallway VITAL SIGNS: Reviewed HEENT: Head is normocephalic and atraumatic. Pupils are equal and reactive. The nares are patent. Oropharynx is clear without lesions. NECK: Supple without lymphadenopathy. Traches midline. Chest dressing left axillary removed scant amount of drainage noted. There is a significant improvement in the tenderness with decrease edema and decreased redness at the site HEART: S1, S2. Regular rate and rhythm. Denying chest pain LUNGS: No crackles or wheezes are heard. Essentially clear adequate air movement ABDOMEN: Soft, nontender, nondistended with good bowel sounds. No peritoneal signs. No palpable organomegaly or masses. EXTREMITIES: Normal skin color and turgor. No cyanosis, rash, ulceration, clubbing or edema. Radial pedal pulses are 2/4 bilaterally. NEUROLOGICAL: No focal deficits. Strength and sensation are grossly intact. - Labs CBC & Chem 7: 04/19/17 07:49 08/09/16 07:49 Labs: Microbiology - Last 24 Hours (Table) 08/08/16 13:36 Anaerobic Culture - Preliminary Chest 08/08/16 13:36 Gram Stain - Final Chest Wound Culture - Final Methicillin resist S. aureus Assessment and Plan Plan: Impression Present on admission severe left chest wall pain left axillary suspect due to an abscess Present on admission febrile tachycardic sepsis likely due to left axillary abscess History of rheumatoid arthritis on methotrexate and humira History recurrent infections is likely hidradenitis Hypertension essential hypothyroid on supplements Plan Continue IV vancomycin per infectious diseases recommendations Wound care per infectious disease Aquacel AG rope Pain control Follow-up on pending wound cultures DVT and GI prophylaxis No further surgical recommendations at this time we'll sign off please re- consult with any further surgical issues that may arise The above dictated assessment and findings were discussed with Dr. Tiago Hamm covering for Dr. Smart Impression and the plan of care have been dictated as directed. Mayi Mederos nurse practitioner acting as a scribe for Dr. Claire covering for Dr. Smart Patient to follow-up in the outpatient setting with Dr. Smart
--- NOTE | 2016-08-11 14:06 | PN ---
DATE OF SERVICE: 08/11/2016 Reason for followup is left chest wall MRSA abscess. INTERVAL HISTORY: The patient is afebrile. She is currently feeling better. Pain is currently controlled. Denies significant chest pain, shortness of breath or cough. On examination, blood pressure 127/82 with a pulse of 84 temperature is 97.8. She is 97% on room air. General description is a middle-age female up in the room in no distress. RESPIRATORY SYSTEM: Unlabored breathing. Clear to auscultation anteriorly. HEART: S1, S2, regular rate and rhythm. ABDOMEN: Soft, no tenderness. LEFT CHEST WALL: Area of swelling, redness and induration has decreased. LABS: White count is 9.4. Creatinine is 0.67. Wound culture with MRSA. Blood culture has been negative. DIAGNOSTIC IMPRESSION AND PLAN: Patient with methicillin-resistant Staphylococcus aureus left chest wall abscess, status post drainage. Plan at this time to finish therapy with oral Bactrim DS along with Aquacel Silver packing of the wound. Follow up in the office in one week. Continue supportive care.
--- NOTE | 2016-08-14 15:53 | DS ---
DATE OF ADMISSION: 08/07/2016 DATE OF DISCHARGE: 08/11/2016 FINAL DIAGNOSES: 1. Left chest wall abscess and cellulitis in an immunosuppressed patient on methotrexate and ( ) causing sepsis on presentation, growing Methicillin-resistant Staph aureus. 2. Bilateral symmetrical rheumatoid arthritis of multiple joints, on immunosuppressed therapy as outpatient. 3. Obesity, body mass index of 38.3. 4. Anxiety not otherwise specified. 5. Depression not otherwise specified. 6. Hypothyroidism. HOSPITAL COURSE: This patient was on the above immunosuppressed therapy for rheumatoid arthritis that was now discontinued, presented with left chest wall abscess, I&D was carried out and growing MRSA. Doing much better at the time of discharge, cellulitis had also improved. CONSULTATIONS: Dr. Perera from infection disease, Dr. Leighann Bassett from general surgery/Dr. Smart from general surgery ( ) the procedure. Dr. Vail from rheumatology. On the day of discharge, care was discussed in detail with the patient and ( ) immunosuppressive therapy. The patient overall doing better. Discharge planning more than 35 minutes. DISCHARGE MEDICATIONS: 1. Synthroid 25 mcg p.o. daily. 2. Klonopin 0.5 mg p.o. b.i.d. 3. Flexeril 10 mg p.o. daily p.r.n. 4. Zoloft 100 mg p.o. daily. 5. Vitamin D2, 50,000 units p.o. Sunday. 6. Folic acid 1 mg p.o. daily. 7. Neurontin 300 mg p.o. daily. 8. [place] 7.5 p.o. b.i.d. 9. Naproxen 500 mg p.o. b.i.d. p.r.n. 10. Prednisone taper. 11. Bactrim DS 1 tablet p.o. q.12 28 tablets. 12. Tylenol 650 mg q.6 p.r.n. Wound care per Dr. Smart. Follow with Dr. Bonds on 08/18/2016. Dr. Smart on 08/22/2016, Dr. Perera on 08/17/2016. Dr. Vail as appointment.
--- NOTE | 2016-08-27 16:02 | P.OP ---
Date of Procedure: 08/08/16 Description of Procedure: SURGEON: SHIRA MONTES DE OCA MD FILM FLAT INSPECTOR: NONE. PREOPERATIVE DIAGNOSES: 1. Morbid obesity. 2. Body mass index 38.3. 3. Rheumatoid arthritis. 4. Cellulitis of the left chest wall with abscess. 5. Hypothyroidism. 6. Personal history of MRSA infection. POSTOPERATIVE DIAGNOSES: 1. Morbid obesity. 2. Body mass index 38.3. 3. Rheumatoid arthritis. 4. Cellulitis of the left chest wall with abscess. 5. Hypothyroidism. 6. Personal history of MRSA infection. 7. Cellulitis left chest wall with abscess along deep subcutaneous tissue, 15 x 10 cm, OPERATION: 1. Incision and drainage of left chest wall 15 x 10 cm 2. Washout of wound 3 L normal saline of left chest wall. 3. Packing Aquacell Ag Rope along left lateral chest wall. ANESTHESIA: GETA with local anesthetic. ESTIMATED BLOOD LOSS: 30 mL. SPECIMENS REMOVED: Aerobic, anaerobic culture. COMPLICATIONS: None. INDICATIONS: The patient is a 40-year-old female who comes in with previous history of multiple MRSA infections. She comes in with a moderate sized cellulitis along the left chest wall over 10-15 cm. Despite IV antibiotics, her symptoms have worsened. Now she presents for further surgical intervention. Benefits and risks were reviewed. Informed consent was obtained. DESCRIPTION: Patient was brought into the operating room, laid in supine position. After adequate IV sedation, the left chest wall was prepped and draped in standard sterile fashion using ChloraPrep. Prior to incision a timeout protocol was confirmed with surgical team regarding patient's name including procedures being performed. Preoperative antibiotic, which was scheduled vancomycin were already administered. DVT prophylaxis with bilateral SCDs were placed. DESCRIPTION: The skin was localized using local anesthetic. An incision of 4 cm was deepened into the deep subcutaneous tissue where immediately vikas purulent drainage was evacuated of at least 10 mL. Aerobic, anaerobic cultures were obtained. The pocket was explored using digital palpation and its actual size was 5 cm in diameter. Next hemostasis was checked with electro- Bovie cautery. Using 3 L waterjet pulsed lavage, the wound was copiously irrigated. Hemostasis was checked again. The wound was packed using Aquacell Ag Rope. Two boxes of 4 x 4's, ABDs and 6 inch Coban was placed around the left chest wall after cleansing the skin. At the end of the procedure, the needle and sponge counts were verified correct by the rn surgical. The patient tolerated the procedure well and was taken to postanesthesia care unit in stable condition. FINDINGS: 1. 5 x 3 cm pocket left chest wall incised and drained and packed.
== END 2016-08-11 16:20 | disposition home health service (06) | DRG 872 ==
LOC: EC 10:04 → 5MS5E 13:33
PROVIDERS: ADMIT Hospitalist; ATTEND Hospitalist
PROC: 0W980ZZ Drainage of Chest Wall, Open Approach (ICD-10-PCS; principal; 2016-08-08 07:30)
DX: A41.02 Sepsis due to Methicillin resistant Staphylococcus aureus (principal); L02.213 Cutaneous abscess of chest wall; I10 Essential (primary) hypertension; L03.313 Cellulitis of chest wall; F32.9 Major depressive disorder, single episode, unspecified; E03.9 Hypothyroidism, unspecified; E66.9 Obesity, unspecified; F41.9 Anxiety disorder, unspecified; L73.2 Hidradenitis suppurativa; M06.9 Rheumatoid arthritis, unspecified; Z68.38 Body mass index [BMI] 38.0-38.9, adult; Z79.899 Other long term (current) drug therapy; Z82.49 Family history of ischemic heart disease and other diseases of the circulatory system; Z87.891 Personal history of nicotine dependence
CPT/HCPCS: 36415; 80048; 80202; 81025; 85025; 87040; 87070; 87075; 87077; 87186; 87205

== ENCOUNTER 2016-08-16 18:16 | Emergency (ER) | payer BC ==
[2016-08-16] MEDS: SODIUM CHLORIDE 0.9% 500 ML IV SCH ×4 (20:17→21:51)
[2016-08-16] MEDS ORDERED: ONDANSETRON 4 MG/2 ML VIAL IVP STA (20:21)
[2016-08-16] MEDS ORDERED: IBUPROFEN 600 MG TAB PO STA (20:21)
--- NOTE | 2016-08-16 20:24 | ED ---
Fever HPI - General Chief Complaint: Fever Stated Complaint: fever, post op Time Seen by Provider: 08/16/16 19:51 Source: patient, RN notes reviewed Mode of arrival: ambulatory Limitations: no limitations - History of Present Illness Initial Comments: Patient is a 40-year-old female presents to the emergency room for evaluation of fever. Patient states she had an infected abscess under her left axilla/ chest that was surgically drained 2 weeks ago. Patient states she's been on Bactrim. Patient states that a home nurse changes the dressings daily. Patient states over the past few days she began developing a fever. Patient states she has been alternating Tylenol and Motrin. Patient states the home nurse came today and advised her to come to the emergency room in case the infection from the abscess with spreading. Patient denies any worsening pain. Patient denies any worsening drainage from the area. Patient states she has a headache. Patient denies ear pain, throat pain, sinus congestion, chest pain, cough, shortness of breath, abdominal pain. Patient states she is nauseous but denies vomiting. Patient states last time she took any Tylenol was around 5 PM this evening. Patient states she is up-to-date on all of her immunizations. - Related Data Home Medications Medication Instructions Recorded Confirmed Levothyroxine Sodium [Synthroid] 25 mcg PO DAILY 05/23/14 08/16/16 clonazePAM [KlonoPIN] 0.5 mg PO BID 05/23/14 08/16/16 Cyclobenzaprine [Flexeril] 10 mg PO DAILY PRN 02/09/16 08/16/16 Sertraline [Zoloft] 100 mg PO DAILY 02/09/16 08/16/16 Ergocalciferol [Vitamin D2 50,000 unit PO ROONEY 08/07/16 08/16/16 (DRISDOL)] Folic Acid 1 mg PO DAILY 08/07/16 08/16/16 Gabapentin [Neurontin] 300 mg PO BID 08/07/16 08/16/16 HYDROcodone/APAP 7.5-325MG [[place] 1 tab PO BID PRN 08/07/16 08/16/16 7.5-325] Naproxen [Naprosyn] 500 mg PO BID PRN 08/07/16 08/16/16 predniSONE See Taper PO DAILY 08/07/16 08/16/16 Previous Rx's Medication Instructions Recorded Sulfamethox-Tmp 800-160Mg [Bactrim 1 tab PO Q12HR #28 tab 08/10/16 DS 800-160 mg] Acetaminophen Tab [Tylenol] 650 mg PO Q6HR PRN #0 tab 08/11/16 Allergies Allergy/AdvReac Type Severity Reaction Status Date / Time No Known Allergies Allergy Verified 08/16/16 20:37 Review of Systems ROS Statement: Those systems with pertinent positive or pertinent negative responses have been documented in the HPI. ROS Other: All systems not noted in ROS Statement are negative. Past Medical History Past Medical History: Rheumatoid Arthritis (RA), Thyroid Disorder Additional Past Medical History / Comment(s): hypothyroid, abscesses since starting meds for RA. History of Any Multi-Drug Resistant Organisms: MRSA Date of last positivie culture/infection: 08/08/16 MDRO Source:: AXILLA, CHEST Past Surgical History: Back Surgery, Section, Orthopedic Surgery, Tubal Ligation, Uterine Ablation Additional Past Surgical History / Comment(s): BILAT CTR, C-SEC X 2, cervical fusions. Past Anesthesia/Blood Transfusion Reactions: No Reported Reaction Past Psychological History: Anxiety Additional Psychological History / Comment(s): Pt lives with her two children, ages 8 and 12. She is independent. Smoking Status: Former smoker Past Alcohol Use History: Occasional Additional Past Alcohol Use History / Comment(s): QUIT SMOKING NOV 2015- SMOKED 1/2 PP WEEK FOR 1 YEAR Past Drug Use History: None Reported - Past Family History Mother Family Medical History: Hypertension, Osteoarthritis (OA) Additional Family Medical History / Comment(s): Abrams's Palsey Father Family Medical History: Rheumatoid Arthritis (RA) Additional Family Medical History / Comment(s): Severe RA General Exam - General Exam Comments Initial Comments: Laying in exam room, no distress. Limitations: no limitations General appearance: alert, in no apparent distress Head exam: Present: atraumatic, normocephalic, normal inspection Eye exam: Present: normal appearance ENT exam: Present: normal exam Neck exam: Present: normal inspection Respiratory exam: Present: normal lung sounds bilaterally. Absent: respiratory distress Cardiovascular Exam: Present: normal rhythm, tachycardia, normal heart sounds Extremities exam: Present: normal inspection Back exam: Present: normal inspection Neurological exam: Present: alert, oriented X3, CN II-XII intact, normal gait Psychiatric exam: Present: normal affect, normal mood Skin exam: Present: other (open healing wound from abscess drainage under left axilla/left chest. No drainage noted. No swelling or erythema noted.) Course Vital Signs 08/16/16 08/16/16 18:21 21:17 Temperature 100.6 F H 98.9 F Pulse Rate 130 H Respiratory 20 Rate Blood Pressure 132/86 O2 Sat by Pulse 96 Oximetry Medical Decision Making - Medical Decision Making Patient is a 40-year-old female presents to the emergency room for evaluation of fever. Patient did have a large abscess drained under her left axilla/chest area about 2 weeks ago. Patient is worried that the infection is spread. Patient is a normal WBC. Lactic acid within normal limits. Wound is healing well. No erythema or swelling noted. Chest x-ray shows no significant findings. Patient states she has a follow-up appointment with her infectious disease specialist tomorrow morning. Patient is stable and can be discharged home. Return parameters discussed. Case discussed with Dr. Fenton. - Lab Data Result diagrams: 08/16/16 20:13 08/16/16 20:13 Lab Results 08/16/16 08/16/16 08/16/16 Range/Units 20:13 20:13 20:13 WBC 7.6 (3.8-10.6) k/uL RBC 4.83 (3.80-5.40) m/uL Hgb 14.5 D (11.4-16.0) gm/dL Hct 44.9 (34.0-46.0) % MCV 92.9 (80.0-100.0) fL MCH 30.1 (25.0-35.0) pg MCHC 32.4 (31.0-37.0) g/dL RDW 13.8 (11.5-15.5) % Plt Count 296 (150-450) k/uL Neutrophils % 81 % Lymphocytes % 6 % Monocytes % 5 % Eosinophils % 5 % Basophils % 0 % Neutrophils # 6.1 (1.3-7.7) k/uL Lymphocytes # 0.4 L (1.0-4.8) k/uL Monocytes # 0.4 (0-1.0) k/uL Eosinophils # 0.4 (0-0.7) k/uL Basophils # 0.0 (0-0.2) k/uL PT (9.0-12.0) sec INR (<1.1) APTT (22.0-30.0) sec Sodium 136 L (137-145) mmol/L Potassium 4.0 (3.5-5.1) mmol/L Chloride 103 (98-107) mmol/L Carbon Dioxide 22 (22-30) mmol/L Anion Gap 11 mmol/L BUN 9 (7-17) mg/dL Creatinine 1.03 (0.52-1.04) mg/dL Est GFR (MDRD) Af Amer >60 (>60 ml/min/1.73 sqM) Est GFR (MDRD) Non-Af 59 (>60 ml/min/1.73 sqM) Glucose 104 H (74-99) mg/dL Plasma Lactic Acid Nash (0.7-2.0) mmol/L Calcium 9.1 (8.4-10.2) mg/dL Total Bilirubin 0.4 (0.2-1.3) mg/dL AST 26 (14-36) U/L ALT 44 (9-52) U/L Alkaline Phosphatase 99 (38-126) U/L Total Creatine Kinase 68 (30-135) U/L CK-MB (CK-2) 0.2 (0.0-2.4) ng/mL CK-MB (CK-2) Rel Index 0.3 Troponin I <0.012 (0.000-0.034) ng/mL Total Protein 8.3 H (6.3-8.2) g/dL Albumin 4.3 (3.5-5.0) g/dL Urine Color Urine Appearance (Clear) Urine pH (5.0-8.0) Ur Specific [place] (1.001-1.035) Urine Protein (Negative) Urine Glucose (UA) (Negative) Urine Ketones (Negative) Urine Blood (Negative) Urine Nitrite (Negative) Urine Bilirubin (Negative) Urine Urobilinogen (<2.0) mg/dL Ur Leukocyte Esterase (Negative) Urine RBC (0-5) /hpf Urine WBC (0-5) /hpf Ur Squamous Epith Cells (0-4) /hpf Urine Mucus (None) /hpf Influenza Type A RNA (Not Detectd) Influenza Type B (PCR) (Not Detectd) 08/16/16 08/16/16 08/16/16 Range/Units 20:13 20:13 20:13 WBC (3.8-10.6) k/uL RBC (3.80-5.40) m/uL Hgb (11.4-16.0) gm/dL Hct (34.0-46.0) % MCV (80.0-100.0) fL MCH (25.0-35.0) pg MCHC (31.0-37.0) g/dL RDW (11.5-15.5) % Plt Count (150-450) k/uL Neutrophils % % Lymphocytes % % Monocytes % % Eosinophils % % Basophils % % Neutrophils # (1.3-7.7) k/uL Lymphocytes # (1.0-4.8) k/uL Monocytes # (0-1.0) k/uL Eosinophils # (0-0.7) k/uL Basophils # (0-0.2) k/uL PT 11.6 (9.0-12.0) sec INR 1.2 (<1.1) APTT 26.0 (22.0-30.0) sec Sodium (137-145) mmol/L Potassium (3.5-5.1) mmol/L Chloride (98-107) mmol/L Carbon Dioxide (22-30) mmol/L Anion Gap mmol/L BUN (7-17) mg/dL Creatinine (0.52-1.04) mg/dL Est GFR (MDRD) Af Amer (>60 ml/min/1.73 sqM) Est GFR (MDRD) Non-Af (>60 ml/min/1.73 sqM) Glucose (74-99) mg/dL Plasma Lactic Acid Nash 1.3 (0.7-2.0) mmol/L Calcium (8.4-10.2) mg/dL Total Bilirubin (0.2-1.3) mg/dL AST (14-36) U/L ALT (9-52) U/L Alkaline Phosphatase (38-126) U/L Total Creatine Kinase (30-135) U/L CK-MB (CK-2) (0.0-2.4) ng/mL CK-MB (CK-2) Rel Index Troponin I (0.000-0.034) ng/mL Total Protein (6.3-8.2) g/dL Albumin (3.5-5.0) g/dL Urine Color Urine Appearance (Clear) Urine pH (5.0-8.0) Ur Specific [place] (1.001-1.035) Urine Protein (Negative) Urine Glucose (UA) (Negative) Urine Ketones (Negative) Urine Blood (Negative) Urine Nitrite (Negative) Urine Bilirubin (Negative) Urine Urobilinogen (<2.0) mg/dL Ur Leukocyte Esterase (Negative) Urine RBC (0-5) /hpf Urine WBC (0-5) /hpf Ur Squamous Epith Cells (0-4) /hpf Urine Mucus (None) /hpf Influenza Type A RNA Not Detected (Not Detectd) Influenza Type B (PCR) Not Detected (Not Detectd) 08/16/16 Range/Units 20:13 WBC (3.8-10.6) k/uL RBC (3.80-5.40) m/uL Hgb (11.4-16.0) gm/dL Hct (34.0-46.0) % MCV (80.0-100.0) fL MCH (25.0-35.0) pg MCHC (31.0-37.0) g/dL RDW (11.5-15.5) % Plt Count (150-450) k/uL Neutrophils % % Lymphocytes % % Monocytes % % Eosinophils % % Basophils % % Neutrophils # (1.3-7.7) k/uL Lymphocytes # (1.0-4.8) k/uL Monocytes # (0-1.0) k/uL Eosinophils # (0-0.7) k/uL Basophils # (0-0.2) k/uL PT (9.0-12.0) sec INR (<1.1) APTT (22.0-30.0) sec Sodium (137-145) mmol/L Potassium (3.5-5.1) mmol/L Chloride (98-107) mmol/L Carbon Dioxide (22-30) mmol/L Anion Gap mmol/L BUN (7-17) mg/dL Creatinine (0.52-1.04) mg/dL Est GFR (MDRD) Af Amer (>60 ml/min/1.73 sqM) Est GFR (MDRD) Non-Af (>60 ml/min/1.73 sqM) Glucose (74-99) mg/dL Plasma Lactic Acid [place] (0.7-2.0) mmol/L Calcium (8.4-10.2) mg/dL Total Bilirubin (0.2-1.3) mg/dL AST (14-36) U/L ALT (9-52) U/L Alkaline Phosphatase (38-126) U/L Total Creatine Kinase (30-135) U/L CK-MB (CK-2) (0.0-2.4) ng/mL CK-MB (CK-2) Rel Index Troponin I (0.000-0.034) ng/mL Total Protein (6.3-8.2) g/dL Albumin (3.5-5.0) g/dL Urine Color Yellow Urine Appearance Cloudy H (Clear) Urine pH 6.0 (5.0-8.0) Ur Specific [place] 1.020 (1.001-1.035) Urine Protein 1+ H (Negative) Urine Glucose (UA) Negative (Negative) Urine Ketones Negative (Negative) Urine Blood Negative (Negative) Urine Nitrite Negative (Negative) Urine Bilirubin Negative (Negative) Urine Urobilinogen <2.0 (<2.0) mg/dL Ur Leukocyte Esterase Negative (Negative) Urine RBC 1 (0-5) /hpf Urine WBC 3 (0-5) /hpf Ur Squamous Epith Cells 3 (0-4) /hpf Urine Mucus Many H (None) /hpf Influenza Type A RNA (Not Detectd) Influenza Type B (PCR) (Not Detectd) 08/16/16 22:28 Normal sinus rhythm, ventricular rate 92 bpm, LA interval 140 ms, QRS duration 88 ms, QT/QTC 358/442 ms - Radiology Data Radiology results: report reviewed, image reviewed Disposition Clinical Impression: Fever, Abscess re-check Disposition: HOME SELF-CARE Condition: Good Instructions: Fever in Adults (ED) Additional Instructions: Continue with prescribed antibiotics. Please follow-up with infectious disease specialist or primary care provider in 24-48 hours. If any new symptom arises or symptoms worsen, return to ER as soon as possible. Referrals: Judson Bonds DO [Primary Care Provider] - 1-2 days Time of Disposition: 22:26
[2016-08-16 20:32] LABS: Basophils % (A) 0 %; CH 31.6; CHCM 34.1; Eosinophils # (A) 0.4 k/uL (0-0.7); Eosinophils % (A) 5 %; HCT 44.9 % (34.0-46.0); HDW 2.35; Luc % (Auto) 3; Lymphocytes # (A) 0.4 k/uL (1.0-4.8); Lymphocytes % (A) 6 %; MCH 30.1 pg (25.0-35.0); MCHC 32.4 g/dL (31.0-37.0); MCV 92.9 fL (80.0-100.0); Mean Platelet Volume 6.3; Monocytes # (A) 0.4 k/uL (0-1.0); Monocytes % (A) 5 %; Neutrophils # (A) 6.1 k/uL (1.3-7.7); Neutrophils % (A) 81 %; RBC 4.83 m/uL (3.80-5.40); RDW 13.8 % (11.5-15.5); WBC 7.6 k/uL (3.8-10.6); WBC (Perox) 7.38
[2016-08-16 20:35] LABS: Appearance,Urine Cloudy (Clear); Bilirubin,Urine Negative (Negative); Glucose,Urine (UA) Negative (Negative); Ketones,Urine Negative (Negative); Leukocyte Esterase,Urine Negative (Negative); Mucus,Urine Many /hpf; Nitrite,Urine Negative (Negative); Particle Count 10760; Protein,Urine 1+ (Negative); RBC,Urine 1 /hpf (0-5); Squamous Epithelial Cell,Urine 3 /hpf (0-4); UA Billing (MACRO vs. MICRO) MICRO; Urobilinogen,Urine <2.0 mg/dL (<2.0); WBC,Urine 3 /hpf (0-5)
[2016-08-16 20:41] LABS: HGB 14.5 gm/dL (11.4-16.0)
[2016-08-16 20:44] LABS: ALT 44 U/L (9-52); AST 26 U/L (14-36); Alkaline Phosphatase 99 U/L (38-126); Anion Gap 11 mmol/L; Blood Urea Nitrogen 9 mg/dL (7-17); Calcium 9.1 mg/dL (8.4-10.2); Carbon Dioxide 22 mmol/L (22-30); Chloride 103 mmol/L (98-107); Creatine Kinase 68 U/L (30-135); Glucose 104 mg/dL (74-99); INR 1.2 (<1.1); Non-African American GFR(MDRD) 59 (>60 ml/min/1.73 sqM); Prothrombin Time 11.6 sec (9.0-12.0); Sodium 136 mmol/L (137-145); Total Bilirubin 0.4 mg/dL (0.2-1.3); Total Protein 8.3 g/dL (6.3-8.2)
[2016-08-16 20:56] LABS: Creatine Kinase MB 0.2 ng/mL (0.0-2.4); Troponin I <0.012 ng/mL (0.000-0.034)
--- NOTE | 2016-08-16 21:24 | XR ---
EXAMINATION TYPE: XR chest 2V DATE OF EXAM: 08/16/2016 9:16 PM COMPARISON: 02/04/2016 INDICATION: Presurgical evaluation TECHNIQUE: 2 view chest FINDINGS: The heart size is normal. The pulmonary vasculature is normal. The lungs are clear. IMPRESSION: 1. No acute pulmonary process.
[2016-08-16 21:52] VITALS: TEMP 98.9
[2016-08-16 22:39] VITALS: BP 105/52; PULSE 74; RESP 16
== END 2016-08-16 22:38 | disposition home or self-care (01) ==
LOC: EC 18:16
DX: Z48.01 Encounter for change or removal of surgical wound dressing (principal); R50.9 Fever, unspecified; M06.9 Rheumatoid arthritis, unspecified; E03.9 Hypothyroidism, unspecified; Z79.52 Long term (current) use of systemic steroids; Z86.14 Personal history of Methicillin resistant Staphylococcus aureus infection; Z87.891 Personal history of nicotine dependence; Z79.899 Other long term (current) drug therapy
CPT/HCPCS: 99284; 96374; 96361 ×2; 36415; 93005; 80053; 82550; 82553; 83605; 84484; 85025; 85610; 85730; 81001; 87040; 87086; 87502; 71020; J2405

== ENCOUNTER → 2016-09-27 | Outpatient (CLI) | payer BC ==
--- NOTE | 2016-09-27 10:21 | CT ---
EXAMINATION TYPE: CT cervical spine wo con DATE OF EXAM: 09/27/2016 COMPARISON: Previous study dated 01/13/2013 HISTORY: Neck pain CT DLP: 576.70 mGycm Automated exposure control for dose reduction was used. TECHNIQUE: CT scan of the cervical spine is obtained without contrast, axial images are obtained, sa gittal and coronal reformatted images are also reviewed. FINDINGS: Visualized portions of the lungs are clear. There is some shotty submental and cervical alessandra nopathy. The largest lymph node is in the deep cervical chain on the left measures 9.1 mm. Prevertebr al soft tissues are otherwise unremarkable. There is been an interval ACDF at C4, C5 and C6 with spacing material. Alignment is normal. Atlantoax ial relationships are normal. At C2-3 and C3-4 no definite abnormality is seen. At C4-5 the intervertebral foramina appear reasonably well-maintained. There is no significant compre ssive discopathy. The facets are unremarkable. At C5-6, there is bilateral intervertebral foraminal narrowing, worse on the left than the right. The re is no significant compressive discopathy. The facets are unremarkable. At C6-7, the intervertebral foramina appear well maintained. There is a diffuse disc displacement. Th ere is mild degenerative change in the uncovertebral joints. The facets are unremarkable. At C7-T1, no definite abnormality is seen. IMPRESSION: 1. POSTSURGICAL CHANGE. 2. BILATERAL INTERVERTEBRAL FORAMINAL NARROWING, C5-6, WORSE ON THE LEFT THAN THE RIGHT. 3. NO SIGNIFICANT COMPRESSIVE DISCOPATHY. 4. MILD UNCOVERTEBRAL JOINT DISEASE, C6-7.
== END | disposition home or self-care (01) ==
LOC: RADCTMAIN 09:18
PROVIDERS: ATTEND Orthopaedic Surgery Orthopaedic Surgery of the Spine
DX: M99.71 Connective tissue and disc stenosis of intervertebral foramina of cervical region (principal); M53.82 Other specified dorsopathies, cervical region; Z98.1 Arthrodesis status
CPT/HCPCS: 72125

== ENCOUNTER 2016-10-10 16:23 | Emergency (ER) | payer BC ==
[2016-10-10] MEDS ORDERED: HYDROcodone/APAP 7.5-325MG 1 EACH TAB PO ONE (17:07)
--- NOTE | 2016-10-10 17:42 | US ---
EXAMINATION TYPE: US venous doppler duplex LE RT DATE OF EXAM: 10/10/2016 5:26 PM COMPARISON: NONE CLINICAL HISTORY: Pain. Edema and pain right leg. History of Rheumatoid arthritis SIDE PERFORMED: Right TECHNIQUE: The lower extremity deep venous system is examined utilizing real time linear array sonog nathaniel with graded compression, doppler sonography and color-flow sonography. VESSELS IMAGED: External Iliac Vein (EIV) Common Femoral Vein Deep Femoral Vein Greater Saphenous Vein * Femoral Vein Popliteal Vein Small Saphenous Vein * Proximal Calf Veins (* superficial vessels) Right Leg: No evidence of DVT IMPRESSION: Normal exam. No evidence of deep venous thrombosis in the right leg.
--- NOTE | 2016-10-10 17:46 | XR ---
EXAMINATION TYPE: XR foot complete RT DATE OF EXAM: 10/10/2016 COMPARISON: NONE HISTORY: Foot pain TECHNIQUE: 3 views FINDINGS: I see no fracture nor dislocation. There is a plantar calcaneal spur. Metatarsals are intac t. There are no erosions. There is a small degenerative cyst in the fifth metatarsal head. IMPRESSION: Calcaneal spurring. No specific evidence for inflammatory arthritis. No fracture.
--- NOTE | 2016-10-10 18:03 | ED ---
Extremity Problem HPI - General Chief complaint: Extremity Problem,Nontraumatic Stated complaint: Poss blood clot Time Seen by Provider: 10/10/16 16:51 Source: patient, RN notes reviewed Mode of arrival: ambulatory Limitations: no limitations - History of Present Illness Initial comments: 40-year-old female presents emergency from she went right leg and foot pain. Patient states that it started last night worse today. She states it seems to be causing some swelling to her right leg. Patient was seen at urgent care sent here for ultrasound. Patient states she has severe pain in her foot but also Pain. She has no history DVT. Patient states she has a history of rheumatoid arthritis. Patient states that she did walk on a treadmill last night for the first time in several years. She states this may be contributing to her symptoms. Denies any discoloration and denies any cold sensation to her foot - Related Data Home Medications Medication Instructions Recorded Confirmed Levothyroxine Sodium [Synthroid] 25 mcg PO DAILY 05/23/14 10/10/16 clonazePAM [KlonoPIN] 0.5 mg PO DAILY 05/23/14 10/10/16 Cyclobenzaprine [Flexeril] 10 mg PO DAILY PRN 02/09/16 10/10/16 Gabapentin [Neurontin] 300 mg PO BID 08/07/16 10/10/16 HYDROcodone/APAP 7.5-325MG [[place] 1 tab PO BID PRN 08/07/16 10/10/16 7.5-325] Naproxen [Naprosyn] 500 mg PO BID PRN 08/07/16 10/10/16 predniSONE 30 mg PO ONCE 08/07/16 10/10/16 Cetirizine HCl [Zyrtec] 10 mg PO DAILY 10/10/16 10/10/16 Allergies Allergy/AdvReac Type Severity Reaction Status Date / Time No Known Allergies Allergy Verified 10/10/16 17:18 Review of Systems ROS Statement: Those systems with pertinent positive or pertinent negative responses have been documented in the HPI. ROS Other: All systems not noted in ROS Statement are negative. Past Medical History Past Medical History: Rheumatoid Arthritis (RA), Thyroid Disorder Additional Past Medical History / Comment(s): hypothyroid, abscesses since starting meds for RA. History of Any Multi-Drug Resistant Organisms: MRSA Date of last positivie culture/infection: 08/08/16 MDRO Source:: AXILLA, CHEST Past Surgical History: Back Surgery, Section, Orthopedic Surgery, Tubal Ligation, Uterine Ablation Additional Past Surgical History / Comment(s): BILAT CTR, C-SEC X 2, cervical fusions. Past Anesthesia/Blood Transfusion Reactions: No Reported Reaction Past Psychological History: Anxiety Smoking Status: Former smoker Past Alcohol Use History: Occasional Past Drug Use History: None Reported - Past Family History Mother Family Medical History: Hypertension, Osteoarthritis (OA) Additional Family Medical History / Comment(s): Abrams's Palsey Father Family Medical History: Rheumatoid Arthritis (RA) Additional Family Medical History / Comment(s): Severe RA General Exam Limitations: no limitations General appearance: alert, in no apparent distress Neck exam: Present: normal inspection. Absent: tenderness, meningismus, lymphadenopathy Respiratory exam: Present: normal lung sounds bilaterally. Absent: respiratory distress, wheezes, rales, rhonchi, stridor Cardiovascular Exam: Present: regular rate, normal rhythm, normal heart sounds. Absent: systolic murmur, diastolic murmur, rubs, gallop, clicks Extremities exam: Present: other (Right foot there is moderate tenderness in right Moderate tenderness, pedal pulses equal bilaterally +2 there is minimal edema noted the right leg there is equal: Equal warmth bilaterally) Course Vital Signs 10/10/16 16:39 Temperature 97.0 F L Pulse Rate 100 Respiratory 20 Rate Blood Pressure 127/78 O2 Sat by Pulse 99 Oximetry Medical Decision Making - Medical Decision Making 40-year-old female presented for right leg pain. There is no acute fracture or DVT. Patient most likely has muscular strain secondary to walking on the treadmill. Return parameters were discussed. Disposition Clinical Impression: Right leg pain, Muscle strain of right lower extremity Disposition: HOME SELF-CARE Condition: Stable Instructions: Leg Pain (ED) Additional Instructions: Please return to the Emergency Department if symptoms worsen or any other concerns. Referrals: Judson Bonds DO [Primary Care Provider] - 1-2 days Time of Disposition: 18:02
[2016-10-10 18:14] VITALS: BP 140/90; PULSE 96; RESP 16; TEMP 97.5
== END 2016-10-10 18:23 | disposition home or self-care (01) ==
LOC: EC 16:23
DX: S86.911A Strain of unspecified muscle(s) and tendon(s) at lower leg level, right leg, initial encounter (principal); E03.9 Hypothyroidism, unspecified; M06.9 Rheumatoid arthritis, unspecified; F41.9 Anxiety disorder, unspecified; Z87.891 Personal history of nicotine dependence; Z79.52 Long term (current) use of systemic steroids; Z79.899 Other long term (current) drug therapy; X58.XXXA Exposure to other specified factors, initial encounter
CPT/HCPCS: 99284

== ENCOUNTER → 2017-07-26 | Outpatient (CLI) | payer BC ==
--- NOTE | 2017-07-26 10:33 | MM ---
Reason for exam: screening (asymptomatic). Baseline mammogram. History: Took hormonal contraceptives for 10 years. Physical Findings: Nurse did not find any significant physical abnormalities on exam. MG Screening Mammo w CAD Bilateral CC, MLO, and CV view(s) were taken. There are scattered fibroglandular densities. Some asymmetric density medial left breast suspected to represent a prominent island of fibroglandular tissue. As no priors are available for comparison, 6 month follow up recommended. These results were verbally communicated with the patient and result sheet given to the patient on 07/26/17. ASSESSMENT: Probably benign, BI-RAD 3 RECOMMENDATION: Follow-up diagnostic mammogram of the left breast in 6 months.
== END | disposition home or self-care (01) ==
LOC: RADMAMWWP 09:30
PROVIDERS: ATTEND Family Medicine
DX: Z12.31 Encounter for screening mammogram for malignant neoplasm of breast (principal)
CPT/HCPCS: 77067

== ENCOUNTER → 2018-03-18 | Outpatient (CLI) | payer BC ==
--- NOTE | 2018-03-18 11:49 | MM ---
Reason for exam: follow-up at short interval from prior study. Last mammogram was performed 8 months ago. History: Took hormonal contraceptives for 10 years. Physical Findings: Nurse did not find any significant physical abnormalities on exam. MG Diagnostic Mammo LT w CAD CC, MLO, ML, spot compression MLO, and spot compression CC view(s) were taken of the left breast. Prior study comparison: July 26, 2017, bilateral MG screening mammo w CAD. The breast tissue is heterogeneously dense. This may lower the sensitivity of mammography. No suspicious abnormality. The previously seen medial middle depth left asymmetry and superior asymmetries resolve on additional views and appear as fibroglandular tissue. These results were verbally communicated with the patient and result sheet given to the patient on 03/18/18. ASSESSMENT: Benign, BI-RAD 2 RECOMMENDATION: Return to routine screening mammogram schedule for both breasts. Back on schedule.
== END ==
LOC: RADMAMWWP 10:54
PROVIDERS: ATTEND Family Medicine
DX: R92.8 Other abnormal and inconclusive findings on diagnostic imaging of breast (principal)
CPT/HCPCS: 77065

== ENCOUNTER → 2019-02-21 | Outpatient (CLI) | payer BC ==
--- NOTE | 2019-02-21 15:47 | CT ---
EXAMINATION TYPE: CT sinus wo con DATE OF EXAM: 02/21/2019 COMPARISON: None HISTORY: Congestion and chronic sinusitis CT DLP: 532.5 mGycm CONTRAST: 0 mL of Isovue 300 The paranasal sinuses are examined in the axial plane at 2 mm thick sections. Reconstructed images i n the coronal plane were obtained. There is dental amalgam scatter artifact The maxillary sinuses are clear. The ethmoid air cells are clear. The sphenoid sinuses are clear. The frontal sinuses are clear. The septum is evaluated. There is septal deviation to the left. The ostiomeatal units are patent. IMPRESSIONS: 1. Left septal deviation
== END | disposition home or self-care (01) ==
LOC: RADCTMAIN 11:34
PROVIDERS: ATTEND Otolaryngology
DX: J34.2 Deviated nasal septum (principal); J32.9 Chronic sinusitis, unspecified
CPT/HCPCS: 70486

== ENCOUNTER → 2022-05-24 | Outpatient (CLI) | payer BC ==
[2022-05-24 18:46] LABS: African American GFR (CKD) 96.8 (60.0-200.0); Anion Gap 11.2 mmol/L (10.00-18.00); BUN/Creat Ratio 18.47 Ratio (12.00-20.00); Blood Urea Nitrogen 15.4 mg/dL (9.0-27.0); Calcium 9.1 mg/dL (8.7-10.3); Carbon Dioxide 26.7 mmol/L (20.0-27.5); Non-African American GFR(CKD) 83.5 (60.0-200.0); Potassium 4.3 mmol/L (3.5-5.5)
[2022-05-24 18:51] LABS: Basophils # (A) 0.05 X 10*3/uL (0.00-0.10); Basophils % (A) 0.7 %; Eosinophils # (A) 0.22 X 10*3/uL (0.04-0.35); Eosinophils % (A) 3.1 %; HGB 14.1 g/dL (12.0-15.0); Immature Grans, Automated 0.1 %; Lymphocytes % (A) 38.4 %; MCHC 32.8 g/dL (32.0-37.0); MCV 97.7 fL (80.0-97.0); Mean Platelet Volume 9.6 fL (9.5-12.2); Monocytes # (A) 0.38 X 10*3/uL (0.20-1.00); Monocytes % (A) 5.4 %; NRBC Per 100 WBC 0 /100 WBCS (0.0-0.0); Neutrophils # (A) 3.68 X 10*3/uL (1.80-7.70); Neutrophils % (A) 52.3 %; Platelet Count 318 X 10*3/uL (140-440); RDW 12.5 % (11.5-14.5); WBC 7.04 X 10*3/uL (4.50-10.00)
== END | disposition home or self-care (01) ==
LOC: LABPAT 12:23
PROVIDERS: ATTEND Obstetrics & Gynecology
DX: Z01.812 Encounter for preprocedural laboratory examination (principal)
CPT/HCPCS: 36415; 80048; 85025

== ENCOUNTER → 2023-08-16 | Outpatient (CLI) | payer BC ==
--- NOTE | 2023-08-17 21:58 | MR ---
EXAMINATION TYPE: MR lumbar spine wo con DATE OF EXAM: 08/16/2023 COMPARISON: NONE HISTORY: Low back pain into rt leg. Sprain of ligaments. TECHNIQUE: Multiplanar, multisequence imaging of the lumbar spine is performed without IV contrast. FINDINGS: Sagittal images of the lumbar spine show vertebral body heights and alignment to appear sat isfactory. The intervertebral discs demonstrate normal heights and hydration. The conus medullaris i s normal in position and signal ending at L1 level. The bone marrow signal intensity is within lino l limits. Axial images show mild facet arthropathy bilaterally at L3-L4 level. There is moderate facet arthropa thy at L4-L5 level. Axial images at L5-S1 level show tiny central disc protrusion and annular tear. T here is increased epidural fat noted. Bilateral neural foramina are patent throughout the lumbar spin e. Paraspinal muscle bulk is maintained. IMPRESSION: Some mild degenerative change in the mid to lower lumbar spine as detailed above. No larg e disc herniation is seen to account for patient's right-sided radiculopathy type symptoms however.
== END | disposition home or self-care (01) ==
LOC: RADMRIMAIN 10:45
PROVIDERS: ATTEND Physical Medicine & Rehabilitation
DX: M47.816 Spondylosis without myelopathy or radiculopathy, lumbar region (principal); M47.817 Spondylosis without myelopathy or radiculopathy, lumbosacral region; M54.16 Radiculopathy, lumbar region
CPT/HCPCS: 72148

== ENCOUNTER → 2023-09-27 | Outpatient (CLI) | payer BC ==
--- NOTE | 2023-09-27 14:02 | MM ---
Reason for Exam: Screening (asymptomatic). Last mammogram was performed 1 year(s) and 7 month(s) ago. Patient History: Menarche at age 12. First Full-Term at age 28. Perimenopausal. Patient has history of breast feeding. Hormonal Contraceptives for 10 years until age 36. Risk Values: Ricarda 5 year model risk: 1.0%. NCI Lifetime model risk: 10.2%. Prior Study Comparison: 07/26/2017 Bilateral Screening Mammogram, [facility]. 03/18/2018 Left Diagnostic Mammogram, [facility]. 02/23/2022 Bilateral MG screening mammo w CAD, [facility]. Tissue Density: There are scattered areas of fibroglandular density. Findings: Analyzed By CAD. Right breast: There is no suspicious group of microcalcifications or new suspicious mass. Left breast: There is no suspicious group of microcalcifications or new suspicious mass. Overall Assessment: Negative, BI-RAD 1 Management: Screening Mammogram of both breasts in [address] [facility] will attempt to contact patient to return for supplemental views and ultrasound if indicated. Patient should continue monthly self-breast exams. A clinical breast exam by your physician is recommended on an annual basis. This exam should not preclude additional follow-up of suspicious palpable abnormalities. Note on Ricarda scores and lifetime risk: 1. A Ricarda score greater than 3% is considered moderate risk. If this is the case, consider specialist referral to assess eligibility for a risk reducing agent. 2. If overall lifetime risk for the development of breast cancer is 20% or higher, the patient may qualify for future screening with alternating mammogram and breast MRI. Electronically signed and approved by: Carrillo Pickering DO
== END | disposition home or self-care (01) ==
LOC: RADMAMWWP 08:27
PROVIDERS: ATTEND Family Medicine
DX: Z12.31 Encounter for screening mammogram for malignant neoplasm of breast (principal)
CPT/HCPCS: 77063; 77067